=== PATIENT | female | born 2000 | race Caucasian/White ===

== ENCOUNTER 2019-03-21 17:32 | Emergency (ER) | payer OTHER ==
--- NOTE | 2019-03-21 17:57 | ER Document Report ---
ED Medical Screen (RME) - General Chief Complaint: Abdominal Pain Stated Complaint: ABDOMINAL PAIN, NAUSEA Time Seen by Provider: 03/21/19 17:54 Mode of Arrival: Ambulatory Information source: Patient Notes: 18-year-old female presents to ED for first small hard dark stools. She took Pepto-Bismol a couple days ago. She states she has frequent small amounts of urine but has so much pressure it feels like she cannot urinate. She has severe abdominal pain with a lot of gas. Pain and pressure has been since Friday. She states sometimes she has few little small spots of stool. She states she took some mag citrate to go me constipation pills and she is taken other [id number] bulk laxative. She states she does not have any medical history except for tonsils and adenoids taken out. She does not smoke she does drink once a week and she is a graduate student instructor. Patient is alert oriented with hyperactive bowel sounds tender abdomen and bloated feeling. I have greeted and performed a rapid initial assessment of this patient. A comprehensive ED assessment and evaluation of the patient, analysis of test results and completion of medical decision making process will be conducted by an additional ED providers. TRAVEL OUTSIDE OF THE [place] IN LAST 30 DAYS: No - Related Data Allergies/Adverse Reactions: No Known Allergies Allergy (Verified 03/21/19 17:56) Physical Exam - Vital signs Vitals: Temp Pulse Resp BP Pulse Ox 98.3 F 100 18 145/92 H 99 03/21/19 17:39 03/21/19 17:39 03/21/19 17:39 03/21/19 17:39 03/21/19 17:39 Course - Vital Signs Vital signs: Temp Pulse Resp BP Pulse Ox 98.3 F 100 18 145/92 H 99 03/21/19 17:39 03/21/19 17:39 03/21/19 17:39 03/21/19 17:39 03/21/19 17:39 - Laboratory Result Diagrams: 03/21/19 18:06 03/21/19 18:06 Laboratory results interpreted by me: 03/21/19 18:06 Total Protein 8.6 H Albumin 5.1 H
[2019-03-21 18:47] LABS: ABSOLUTE BASOPHILS # (AUTO) 0.1 10^3/uL (0.0-0.2); ABSOLUTE EOSINOPHILS # (AUTO) 0.1 10^3/uL (0.0-0.6); ABSOLUTE MONOCYTES (AUTO) 0.5 10^3/uL (0.1-1.4); ABSOLUTE NEUT (AUTO) 5.7 10^3/uL (1.7-8.2); BASOPHILS % (AUTO) 0.6 % (0-2); EOSINOPHILS % (AUTO) 0.8 % (0-6); HEMATOCRIT 39.9 % (36.0-47.0); HEMOGLOBIN 13.4 g/dL (12.0-15.5); LYMPHOCYTES % (AUTO) 23.7 % (13-45); MEAN CORPUSCULAR HEMOGLOBIN 30.2 pg (27.0-33.4); MEAN CORPUSCULAR HGB CONC 33.7 g/dL (32.0-36.0); MEAN CORPUSCULAR VOLUME 90 fl (80-97); MONOCYTES % (AUTO) 6.5 % (3-13); PLATELET COUNT 345 10^3/uL (150-450); RED BLOOD COUNT 4.46 10^6/uL (3.72-5.28); RED CELL DISTRIBUTION WIDTH 12.5 % (11.5-14.0); SEGMENTED NEUTROPHILS % (AUTO) 68.4 % (42-78); TOTAL CELLS COUNTED % (AUTO) 100 %; WHITE BLOOD COUNT 8.4 10^3/uL (4.0-10.5)
[2019-03-21 18:53] LABS: ALANINE AMINOTRANSFERASE 18 U/L (9-52); ALBUMIN 5.1 g/dL (3.5-5.0); ALKALINE PHOSPHATASE 63 U/L (38-126); ANION GAP 16 (5-19); ASPARTATE AMINO TRANSFERASE 19 U/L (14-36); BILIRUBIN,DIRECT 0.3 mg/dL (0.0-0.4); BILIRUBIN,TOTAL 0.4 mg/dL (0.2-1.3); BLOOD UREA NITROGEN 8 mg/dL (7-20); CARBON DIOXIDE 24 mmol/L (22-30); CHLORIDE 101 mmol/L (98-107); GLUCOSE 94 mg/dL (75-110); POTASSIUM 4.2 mmol/L (3.6-5.0); SODIUM 141.1 mmol/L (137-145); TOTAL PROTEIN 8.6 g/dL (6.3-8.2)
[2019-03-21] MEDS ORDERED: DICYCLOMINE HCL 20 MG TABLET PO ONE (19:33)
[2019-03-21] MEDS ORDERED: METOCLOPRAMIDE HCL 10 MG TABLET PO ONE (19:33)
--- NOTE | 2019-03-21 19:42 | ER Document Report ---
ED General - General Chief Complaint: Abdominal Pain Stated Complaint: ABDOMINAL PAIN, NAUSEA Time Seen by Provider: 03/21/19 17:54 Mode of Arrival: Ambulatory Information source: Patient TRAVEL OUTSIDE OF THE [place] IN LAST 30 DAYS: No - HPI Patient complains to provider of: Low abdominal pain, nausea, painful bowel movements, loose stool Onset: Other - 4 days Onset/Duration: Persistent Quality of pain: Cramping, Sharp Severity: Severe Pain Level: 4 Associated symptoms: Diarrhea, Nausea. denies: Chills, Fever Exacerbated by: Denies Relieved by: Denies Similar symptoms previously: No Recently seen / treated by doctor: No Notes: 18-year-old female coming in today with severe lower abdominal pain, nausea, painful bowel movements, dark-colored bowel movements. Sometimes started 4 days ago. No previous history with her bowels. No fevers or shaking chills. No blood or mucus in the stools. - Related Data Allergies/Adverse Reactions: No Known Allergies Allergy (Verified 03/21/19 17:56) Past Medical History - General Information source: Patient - Social History Smoking Status: Never Smoker Frequency of alcohol use: weekly alcohol use Drug Abuse: None Family History: Reviewed & Not Pertinent Patient has suicidal ideation: No Patient has homicidal ideation: No Renal/ Medical History: Denies: Hx Peritoneal Dialysis Past Surgical History: Reports: Hx Tonsillectomy - and adenoids Review of Systems - Review of Systems Notes: Constitutional: No fevers. No chills. EENT: No eye redness. No eye pain. No ear pain. No sore throat. Cardiovascular: No chest pain. No palpitations. Respiratory: No cough. No shortness of breath. No respiratory distress. Gastrointestinal: Positive abdominal pain, nausea, vomiting, diarrhea. Genitourinary: Atraumatic. No lesions. No pain. No discharge. Musculoskeletal: Atraumatic. No swelling. No deformities. Skin: No rash or lesions. Lymphatic: No swollen lymph nodes. Neurologic: No headache. No syncope. Psychiatric: No suicidal or homicidal ideation. Physical Exam - Vital signs Vitals: Temp Pulse Resp BP Pulse Ox 98.3 F 100 18 145/92 H 99 03/21/19 17:39 03/21/19 17:39 03/21/19 17:39 03/21/19 17:39 03/21/19 17:39 - Notes Notes: General: Well-developed, well-nourished. In no acute distress. Non-toxic appearing. Cardiac: Well-perfused. Regular rate and rhythm. No murmurs, rubs, or gallops. Pulmonary: No respiratory distress. No cyanosis. Bilateral lung fiels are clear to auscultation. Abdominal: Diffuse tenderness to palpation over the right lower quadrant and left lower quadrant and suprapubic regions. Abdomen is soft. No guarding or rebound. Bowel sounds are present all 4 quadrants. HEENT: Head is atraumatic. Conjunctivae not reddened. No tearing. PERRL. EOMI. Orbits atraumatic. No periorbital swelling or erythema. Oropharynx is without erythema, swelling, or exudates. Neck: Supple. No adenopathy. No meningismus. Dermatologic: Warm with good turgor. No rash. Atraumatic. Chest: Atraumatic. No chest wall tenderness to palpation. Musculoskeletal: Moves all extremities well. No range of motion deficits. no muscular or joint tenderness. No paraspinal muscle tenderness. no midline spinal tenderness or step-off. Genitourinary: Examination deferred Neurologic: No gross neurologic deficits. Psychiatric: Normal mood. Course - Vital Signs Vital signs: Temp Pulse Resp BP Pulse Ox 98.3 F 100 18 145/92 H 99 03/21/19 17:39 03/21/19 17:39 03/21/19 17:39 03/21/19 17:39 03/21/19 17:39 - Laboratory Result Diagrams: 03/21/19 18:06 03/21/19 18:06 Laboratory results interpreted by me: 03/21/19 03/21/19 18:06 18:10 Total Protein 8.6 H Albumin 5.1 H Urine Protein 100 H Urine Ketones 80 H Urine Blood MODERATE H Ur Leukocyte Esterase MODERATE H Discharge - Discharge Clinical Impression: UTI (urinary tract infection) Qualifiers: Urinary tract infection type: site unspecified Hematuria presence: without hematuria Qualified Code(s): N39.0 - Urinary tract infection, site not specified Condition: Good Disposition: HOME, SELF-CARE Instructions: Cephalexin ([facility]), Abdominal Pain ([facility]), Urinary Tract Infection ([facility]) Prescriptions: Cephalexin Monohydrate [Keflex 500 mg Capsule] 500 mg PO Q6H 7 Days #28 capsule Referrals: clinic, walk-in [Other] - Follow up as needed
--- NOTE | 2019-03-21 19:42 | RADIOLOGY REPORT (SQ) ---
EXAM DESCRIPTION: ABDOMEN 2 VIEWS COMPLETED DATE/TIME: 03/21/2019 7:20 pm REASON FOR STUDY: abd pain COMPARISON: None. NUMBER OF VIEWS: Two views. TECHNIQUE: Supine and erect/decubitus radiographic images of the abdomen acquired. LIMITATIONS: None. FINDINGS: FREE AIR: None. No abnormal gas collections. LUNG BASES: Clear. BOWEL GAS PATTERN: Nonobstructive pattern. No dilated loops or air fluid levels. CALCIFICATIONS: No suspicious calcifications. SOFT TISSUES: No gross mass or suggestion of organomegaly. HARDWARE: None in the abdomen. BONES: No acute fracture. No worrisome bone lesions. OTHER: No other significant finding. IMPRESSION: NO RADIOGRAPHIC EVIDENCE FOR ACUTE ABDOMINAL DISEASE. TECHNICAL DOCUMENTATION: JOB ID: [id number] [place]-72 2010 [employer]- All Rights Reserved Reading location - IP/workstation name: [email or web address]
--- NOTE | 2019-03-21 20:55 | RADIOLOGY REPORT (SQ) ---
EXAM DESCRIPTION: [facility]: CT ABDOMEN PELVIS WITH IV CONTRAST CLINICAL HISTORY: 18 years Female; low abd pain, nausea TECHNIQUE: CT of the abdomen and pelvis using intravenous 73 mL Omnipaque 350. All CT scans at this facility use dose modulation, iterative reconstruction, and/or weight based dosing when appropriate to reduce radiation dose to as low as reasonably achievable. COMPARISON: None. FINDINGS: Abdomen: Liver:No focal lesions. No intrahepatic ductal distention. Gallbladder:Negative Pancreas:Within normal limits Spleen:Within normal limits Right kidney:No hydronephrosis. No focal lesion. Left kidney:No hydronephrosis. No focal lesion. Adrenal glands:Within normal limits Vascular structures:Within normal limits Pelvis: Small bowel:No significant distention. Appendix:Within normal limits Colon:No distention or acute pericolonic edema. No free intraperitoneal fluid or air. No pelvic mass or adenopathy. No acute pelvic inflammatory changes. Bony structures are within normal limits. IMPRESSION: 1. Normal CT of the abdomen and pelvis with contrast.
[2019-03-21 21:37] LABS: AMORPHOUS SEDIMENT,URINE TRACE /HPF; APPEARANCE,URINE TURBID; BILIRUBIN,URINE NEGATIVE (NEGATIVE); COLOR,URINE YELLOW; GLUCOSE, URINE NEGATIVE (NEGATIVE); KETONES,URINE 80 mg/dL (NEGATIVE); LEUKOCYTE ESTERASE,URINE MODERATE (NEGATIVE); NITRITE,URINE NEGATIVE (NEGATIVE); PROTEIN,URINE 100 mg/dL (NEGATIVE); URINE SPECIFIC GRAVITY 1.028; UROBILINOGEN,URINE NEGATIVE mg/dL (<2.0)
[2019-03-21] MEDS ORDERED: HYDROCODONE/ACETAMINOPHEN 5-325 MG (6 TAB/ER DISP) PO PRN (21:43)
[2019-03-21] MEDS ORDERED: CEPHALEXIN 500 MG CAPSULE PO ONE (21:43)
[2019-03-21 21:57] VITALS: BP 142/86
== END 2019-03-21 21:57 | disposition home or self-care (01) ==
LOC: ER 17:32
DX: N39.0 Urinary tract infection, site not specified (principal); R11.0 Nausea; R19.7 Diarrhea, unspecified; R10.31 Right lower quadrant pain; R10.32 Left lower quadrant pain
CPT/HCPCS: 99284; 36415; 84703; 85025; 80053; 81001; 74019; 74177; J3490